=== PATIENT | male | born 1975 | race Caucasian/White ===

== ENCOUNTER 2024-08-24 13:57 | Emergency (ER) | payer MEDICARE, OTHER ==
[~2024-08-24] VITALS: Ht 175.3 cm; Wt 127.0 kg
[2024-08-24] MEDS ORDERED: SULF1TAB48 PO (14:41)
[2024-08-24 17:37] VITALS: BP 118/77; TEMP 98.9; O2SAT 99
== END 2024-08-24 17:37 | disposition home or self-care (01) ==
LOC: ER 14:03
DX: L02.11 Cutaneous abscess of neck (principal); I10 Essential (primary) hypertension; F20.0 Paranoid schizophrenia